=== PATIENT | male | born 1930 | race Caucasian/White ===

== ENCOUNTER 2017-04-20 22:40 | Emergency (ER) | payer MEDICARE ==
[~2017-04-20] VITALS: Ht 167.6 cm; Wt 67.0 kg
[~2017-04-20 22:40] MED LIST: ALLEGRA30 MG OR; AMLODIPINE2.5 MG PO; ASPIRIN EC81 MG PO; AUGMENTIN875TAB PO; HIBICLENS4 % EX; MULTIVITAMI1 PO; OMNICEF300 MG PO; PHENERGAN25 MG/ML IM; QUINAGLUTE DUR324 MG PO; SIMVASTATIN10 MG PO
[2017-04-21 00:26] LABS: HEMATOCRIT 39.2 % (39.0-50.0); HEMOGLOBIN 12.7 g/dl (14.0-18.0); IMMATURE GRANULOCYTES 0.4 % (0.0-1.0); MEAN CELL VOLUME 92.5 fL CALC (80.0-100.0); MEAN CORPUSCULAR HGB CONC 32.4 g/L CALC (32.0-36.0); NEUT# 3.65 thou/uL (1.82-7.42); RED BLOOD COUNT 4.24 mill/uL (4.70-6.10); RED CELL DISTRI WIDTH 14.1 % (11.5-15.5)
[2017-04-21 00:33] LABS: ALKALINE PHOSPHATASE 103 u/l (38-126); ANION GAP 17 (6-22 (CALC)); BILIRUBIN, TOTAL 0.2 mg/dL (0.0-1.4); BUN 28 mg/dL (8-23); BUN/CREATININE RATIO 23 (12-20 (CALC)); CARBON DIOXIDE 26 mmol/l (22-30); CHLORIDE 104 mmol/l (95-108); CREATININE 1.2 mg/dL (0.7-1.3); GFR 57 ML/MIN (>=60 (CALC)); GFR FOR AFR.AMER. > 60 ML/MIN (>=60 (CALC)); POTASSIUM 4.2 mmol/l (3.5-5.1); SGOT/AST 50 u/l (19-48); SGPT/ALT 34 u/l (11-66); SODIUM 142 mmol/l (137-146); TOTAL PROTEIN 6.6 g/dL (6.3-8.2)
[2017-04-21 00:35] LABS: INFLUENZA A NONE DETECTED (NONE DETECT); INFLUENZA B NONE DETECTED (NONE DETECT)
[2017-04-21] MEDS ORDERED: AMOXICILLIN500 MG PO (01:31)
[2017-04-21 01:50] VITALS: BP 150/75
== END 2017-04-21 01:53 | disposition home or self-care (01) ==
LOC: ED 22:40
PROVIDERS: Emergency Medicine
DX: J40 Bronchitis, not specified as acute or chronic (principal); R50.9 Fever, unspecified; R05 Cough; I10 Essential (primary) hypertension; Z85.038 Personal history of other malignant neoplasm of large intestine

== ENCOUNTER 2017-04-23 15:09 | Emergency (ER) | payer MEDICARE ==
[~2017-04-23] VITALS: Ht 167.6 cm; Wt 67.0 kg
[~2017-04-23 15:09] MED LIST changes: +AMOXICILLIN500 MG PO
[2017-04-23 16:08] LABS: HEMATOCRIT 40.8 % (39.0-50.0); HEMOGLOBIN 13.2 g/dl (14.0-18.0); IMMATURE GRANULOCYTES 0.2 % (0.0-1.0); MEAN CELL VOLUME 92.5 fL CALC (80.0-100.0); MEAN CORPUSCULAR HGB 29.9 pG CALC (26.0-32.0); MEAN CORPUSCULAR HGB CONC 32.4 g/L CALC (32.0-36.0); NEUT# 3.81 thou/uL (1.82-7.42); RED BLOOD COUNT 4.41 mill/uL (4.70-6.10); RED CELL DISTRI WIDTH 14.4 % (11.5-15.5)
[2017-04-23 16:22] LABS: ALKALINE PHOSPHATASE 114 u/l (38-126); ANION GAP 18 (6-22 (CALC)); BUN 26 mg/dL (8-23); BUN/CREATININE RATIO 21 (12-20 (CALC)); CARBON DIOXIDE 25 mmol/l (22-30); CHLORIDE 103 mmol/l (95-108); CREATININE 1.2 mg/dL (0.7-1.3); GFR 57 ML/MIN (>=60 (CALC)); GFR FOR AFR.AMER. > 60 ML/MIN (>=60 (CALC)); LIPASE 79 u/l (23-300); POTASSIUM 4.7 mmol/l (3.5-5.1); SGOT/AST 47 u/l (19-48); SGPT/ALT 47 u/l (11-66); SODIUM 141 mmol/l (137-146); TOTAL PROTEIN 6.7 g/dL (6.3-8.2)
[2017-04-23 16:24] LABS: BILIRUBIN, TOTAL 0.4 mg/dL (0.0-1.4)
[2017-04-23 19:51] VITALS: BP 148/79
== END 2017-04-23 19:52 ==
LOC: ED 15:09
PROVIDERS: Family Medicine
DX: K56.609 Unspecified intestinal obstruction, unspecified as to partial versus complete obstruction (principal); Z98.0 Intestinal bypass and anastomosis status; R10.12 Left upper quadrant pain; R50.9 Fever, unspecified; R51 Headache; R11.10 Vomiting, unspecified; R53.1 Weakness
CPT/HCPCS: Q9967